=== PATIENT | male | born 1940 | race Caucasian/White ===

== ENCOUNTER 2016-09-27 10:28 | Emergency (ER) | payer MEDICARE, OTHER ==
[~2016-09-27] VITALS: Ht 182.9 cm; Wt 94.5 kg
[~2016-09-27 10:28] MED LIST: ASPI-351 PO; FISH PO; LIP40 PO; LISI10TA9 PO; LOPRESSOR25 MG PO; MVI PO; NIAC1CAP PO; NITR0.4T SL
[2016-09-27 10:50] VITALS: BP 115/59; PULSE 64; RESP 12; O2SAT 96
[2016-09-27 11:10] LABS: INR 1.24 ratio
[2016-09-27 11:29] LABS: Magnesium 1.8 mg/dL (1.6-2.6)
--- NOTE | 2016-09-27 11:30 | ED.REPORT ---
HPI-Chest Pain 40 and Over Date of Service Sep 27, 2016 ED Provider: Teresita Avila MD A 76 year old male with a history of MIx3 and diabetes presents to the ED via EMS complaining of epigastric chest pain described as pressure under breast bones. Pain onset within minutes after he took morning medications, pain rated as 7-8/10. He became diaphoretic and nauseated. He called EMS, having concern for SD because of his Hx of SD. Per EMS, pain was improving en route after he was sitting up. Pain is 3/10 now. Patient reports that Nitro in tongue did not do anything, and he did not take Aspirin, not regularly taking Aspirin at home. Nursing Notes Stated Complaint: EPIGASTRIC PAIN Chief Complaint: Chest Pain Nursing Notes Reviewed: Yes Allergies: Coded Allergies: morphine (Verified Allergy, Severe, 04/04/09) Scheduled Aspirin-Expunged Drug, Do Not Renew! (Aspirin-Expunged Drug, Do Not Renew!) 325 Mg Tablet 325 MG PO PM Atorvastatin-Expunged Drug, Do Not Renew! (Atorvastatin-Expunged Drug, Do Not Renew!) 40 Mg Tablet 60 MG PO HS Fish Oil-Expunged Drug, Do Not Renew! (Fish Oil-Expunged Drug, Do Not Renew!) Cap 1 CAP.EC PO AM Lisinopril-Expunged Drug, Do Not Renew! (Lisinopril-Expunged Drug, Do Not Renew! ) 10 Mg Tablet 10 MG PO PM Metoprolol Tart-Expunged Drug, Do Not Renew! (Metoprolol Tart-Expunged Drug, Do Not Renew!) 25 Mg Tab 25 MG PO AM & PM Niacin/Inositol Niacinate-Expunged Drug, Do N (Niacin-Expunged Drug, Do Not Renew!) 1 Cap Capsule 1 CAP PO AM & PM Nitroglycerin-Expunged Drug, Do Not Renew! (Nitroglycerin SL-Expunged Drug, Do Not Renew!) 0.4 Mg Tab.subl 0.4 MG SL PRN Therapeutic Multivit/Minerals-Expunged Drug, (Therapeutic Multivit/Minerals- Expunged Drug,) 1 Ea Tab 1 TAB PO AM General Time Seen by MD: 10:53 Chief Complaint Chest pain Hx Obtained From: Patient, EMS Arrived By: Ambulance Sudden in Onset?: Yes Onset Occurred: 1 - 4 hours ago Symptom Duration: Since onset Location: : Epigastric Severity: Current: Pain level 3 out of 10 Severity: Maximum: Pain level 8 out of 10 Recent Healthcare: No recent doctor visit Similar Sx Previous: No Past Medical History Past Medical History Notes: All doctors are at [facility] Past Medical History MIx2 Parkinson's disease chronic lymphocytic leukemia neuropathy Reports: Diabetes mellitus, Hypertension Past Surgical History 4 way bypass, 2 stents Reports: Appendectomy Ambulatory Status Independent Review of Systems Constitutional: Denies: Chills, Fever Cardiovascular: Reports: Chest pain GI: Reports: Nausea Skin: Reports Diaphoresis Complete sys rev & neg: except as marked. Physical Exam Initial Vital Signs Vital Signs (First) Date Time Temp Pulse Resp B/P Pulse Ox O2 Delivery O2 Flow Rate FiO2 09/27/16 10:50 36.8 64 12 115/59 96 Room Air Initial VS: Reviewed General/Constitutional: Awake, Alert Respiratory / Chest: Atraumatic, Breath sounds NL, Breath sounds = bilat, No respiratory distress, No rales, No rhonchi, No wheezing Cardiovascular: Heart rate NL, Regular rhythm, Heart sounds NL, No gallop, No murmurs, No rubs Abdomen: No guarding, No rebound, BS normoactive Lower Extremity / Pelvis / MS: Atraumatic, No edema Skin: Atraumatic, Color NL, Warm, Dry Neurologic: Oriented X3 (non focal exam), Speech NL Psychiatric: Affect NL, Mood NL Head / Eyes: Atraumatic, Normocephalic, PERRL, EOMI ENT: Atraumatic, Mucous membranes moist Interpretation & Diagnostics Interpretation & Diagnostics: CLL: WBC has been in this range for the last year Lab Results Interpretation Result Diagram: 09/27/16 1045 09/27/16 1045 Test 09/27/16 10:45 09/27/16 13:20 White Blood Count 80.5th/mm3 (3.8-10.1) Red Blood Count 4.91mil/mm3 (4.40-5.80) Hemoglobin 14.6g/dL (13.8-17.2) Hematocrit 45.5% (41.0-50.0) Mean Corpuscular Volume 92.7fL (81-100) Mean Corpuscular Hemoglobin 29.7pg (27.0-35.0) Mean Corpuscular Hemoglobin Concent 32.1% (32.0-37.0) Red Cell Distribution Width 16.0% (12.3-15.4) Platelet Count 169bil/L (150-400) Neutrophils (%) (Auto) 7% (40-74) Lymphocytes (%) (Auto) 89% (14-46) Monocytes (%) (Auto) 2% (4-12) Eosinophils (%) (Auto) 1% (0-5) Basophils (%) (Auto) 1% (0-3) Hematology Comments Prothrombin Time 13.3sec (8.1-12.5) Prothromb Time International Ratio 1.24ratio Sodium Level 140mEq/L (134-144) Potassium Level 5.3mEq/L (3.5-5.2) Chloride Level 104mEq/L (97-108) Carbon Dioxide Level 24mmol/L (18-29) Blood Urea Nitrogen 17mg/dL (8-27) Creatinine 0.73mg/dL (0.76-1.27) Estimat Glomerular Filtration Rate 111mL/min (>59) Glucose Level 133mg/dL (60-99) Calcium Level 9.3mg/dL (8.5-10.1) Magnesium Level 1.8mg/dL (1.6-2.6) Total Bilirubin 1.1mg/dL (0.0-1.2) Aspartate Amino Transf (AST/SGOT) 42U/L (0-50) Alanine Aminotransferase (ALT/SGPT) 6U/L (0-44) Alkaline Phosphatase 76U/L (25-160) Total Protein 6.4g/dL (6.4-8.4) Albumin 4.1g/dL (3.4-5.0) Troponin T < 0.010ug/L (0.0-0.011) ECG Interpretation ECG Interpretation: Rate is 51. Sinus arrhythmia. Right bundle branch block. No acute ischemia. Time: 11:22 Interpreted by: ED physician X-Ray Chest Interpretation Chest Xray Interpretation: IMPRESSION: No acute cardiopulmonary disease. Dictated by: Freddy Blood M.D. on 09/27/2016 at 11:38 Approved by: Freddy Blood M.D. on 09/27/2016 at 11:38 Interpretation / Wet Read by: Interpret - Radiologist Re-Eval/Medical Decision Med Decision/Clinical Course 76-year-old gentleman with known coronary artery disease, presents with substernal/mid epigastric chest pain shortly after swallowing his morning pills. He does describe it as different from the pain and pressure that he experienced prior to his cardiac events. 911 was called, initial dose of nitroglycerin did not have any effect on his pain. Once in the emergency room 2 additional doses of nitroglycerin were given and did significantly improve overall chest pain. Within about an hour of the nitroglycerin given chest pain was returning. This resolved nicely with a GI cocktail and has remained resolved at this point. Labs are very reassuring including an initial troponin and a repeat troponin at 2 hours. EKG is unchanged and shows no acute ischemia. Onset of pain so closely related to taking a handful of medications, I suspect that there is a small bit of irritation from a pill stuck to the esophageal lining. At this point I do not think that there is a cardiac component to this. My concerns with cardiac etiology and then suspicion for esophageal spasm secondary to a pill being caught are shared with him. All questions are answered. patient feels safe with going home. Requesting copies of notes be sent to [facility]. We will provide him with copies of notes labs and EKGs to actually transport to [facility] specifically. Source of Hx: Old records, EMS Time of Eval: 12:32 Patient Status: Condition improved Re-Evaluation/Progress Note: Rechecked patient who reports that there pain has decreased after having 2 Nitro in ED . He now rates pain as 0-1/10, but reports .episodes of chest pressure and diaphoresis for 5-10 minutes. Her reports that his head "feels like a balloon." He confirms that 1 spray of nitro did not help en route to ED.  Counseled Regarding: Diagnosis, Lab results, Need for follow-up, When/why to return to ED Discharge & Departure Primary Impression: Esophageal spasm Additional Impressions: Non-cardiac chest pain CLL (chronic lymphocytic leukemia) Ruled Out: STEMI (ST elevation myocardial infarction), Acute coronary syndrome Disposition: Home Additional Instructions: I think that your right and your chest pain is caused from a pill getting stuck in your lower esophagus. We did a complete workup to look for cardiac etiologies of your pain and we found nothing of concern. At this point I do believe it is safe for you to go home. I do encourage you to follow up with your physicians at [facility]. I have given you a copy of your ER notes, EKGs and labs to share with your doctors. Thank you for letting me take care of you today. Referrals: JACOB Kay Attestation Portions of this note were transcribed by Dominic Mclean. I, Dr. Avila personally performed the history, physical exam and medical decision-making; I reviewed and confirmed the accuracy of the information in the transcribed note. Signed by: Rahul Ayers, 09/27/2016, 1523. copies to: Teresita Winter MD Sep 27, 2016 11:30 Dominic Mclean Sep 27, 2016 11:37 copies to: Teresita Winter MD Sep 27, 2016 11:30 Domiinc Mclean Sep 27, 2016 11:37 Teresita Avila MD Sep 27, 2016 11:30 Dominic Mclean Sep 27, 2016 11:37
[2016-09-27 11:32] VITALS: BP 111/44; PULSE 63; RESP 15; O2SAT 95
[2016-09-27 11:34] LABS: TROPONIN T < 0.010 ug/L (0.0-0.011)
[2016-09-27 11:35] LABS: BASOPHILS % (AUTO) 1 % (0-3); EOSINOPHILS % (AUTO) 1 % (0-5); MONOCYTES % (AUTO) 2 % (4-12); Mean Corpuscular Hemoglobin 29.7 pg (27.0-35.0); Mean Corpuscular Volume 92.7 fL (81-100); NEUTROPHILS % (AUTO) 7 % (40-74); Platelet Count 169 bil/L (150-400)
--- NOTE | 2016-09-27 11:40 | DRSVH ---
PROCEDURE: X-RAY CHEST ONE VIEW, PORTABLE ([id number]) INDICATIONS: 76 year-old male with chest pain. TECHNIQUE: One view of the chest was acquired. COMPARISON: [facility], , CHEST 1VW (PORTABLE), 09/22/2008, 8:40. FINDINGS: Surgical changes and devices: Patient is status post coronary artery bypass grafting. Lungs and pleura: No pleural effusions or pneumothorax. Lungs are clear. Mediastinum: Mediastinal contours appear normal. Heart size is normal. Bones and chest wall: No suspicious bony lesions. Overlying soft tissues appear unremarkable. IMPRESSION: No acute cardiopulmonary disease. Dictated by: Freddy Blood M.D. on 09/27/2016 at 11:38 Approved by: Freddy Blood M.D. on 09/27/2016 at 11:38
[2016-09-27 11:44] VITALS: BP 92/50; PULSE 67; RESP 16; O2SAT 96
[2016-09-27] MEDS: LidocaineVisc 2%:Antacid 1:1 10 mL Syringe PO SCH ×2 (12:54→13:16)
[2016-09-27 13:57] VITALS: BP 124/57; PULSE 81; RESP 15; O2SAT 98
[2016-09-27 15:40] VITALS: BP 126/63; PULSE 59; RESP 18; O2SAT 99
== END 2016-09-27 15:49 | disposition home or self-care (01) ==
LOC: SED 10:28 → EDBD 10:28 → EDUNIT# 10:28 → SED 15:49
DX: K22.4 Dyskinesia of esophagus (principal); R07.89 Other chest pain; C91.10 Chronic lymphocytic leukemia of B-cell type not having achieved remission; I25.2 Old myocardial infarction; G20 Parkinson's disease; E11.9 Type 2 diabetes mellitus without complications; I10 Essential (primary) hypertension; Z95.5 Presence of coronary angioplasty implant and graft; Z88.5 Allergy status to narcotic agent; Z79.82 Long term (current) use of aspirin

== ENCOUNTER 2016-10-01 02:27 | Observation (INO) | payer MEDICARE, OTHER ==
[2016-10-01] VITALS (9 sets, daily range): BP systolic 98–125; BP diastolic 50–71; PULSE 52–62; RESP 14–20; O2SAT 95–98
[~2016-10-01] VITALS: Ht 185.4 cm; Wt 95.4 kg
[2016-10-01 02:46] LABS: EOSINOPHILS % (AUTO) 0 % (0-5); Mean Corpuscular Hemoglobin 29.2 pg (27.0-35.0); Mean Corpuscular Volume 90.9 fL (81-100); Platelet Count 169 bil/L (150-400)
--- NOTE | 2016-10-01 02:48 | ED.REPORT ---
HPI-Chest Pain 40 and Over Date of Service Oct 01, 2016 ED Provider: Dr. Vallejo Pt is a 76 year old male with a hx of MIx3, Parkinson's disease, chronic lymphocytic leukemia, neuropathy, DM, HTN presenting to the ED via EMS complaining of 8/10 chest pain lasting about 45 minutes onset just prior to arrival after light exertion. Associated symptoms include diaphoresis, SOB, nausea. He reports that this felt much different than his other heart attacks, though each chart attack was different from the prior. Medics gave 2 nitro and 324 ASA. The chest pain is currently at a 0/10. Nursing Notes Stated Complaint: CHEST PAIN Chief Complaint: Chest Pain Nursing Notes Reviewed: Yes Allergies: Coded Allergies: morphine (Verified Allergy, Severe, 04/04/09) Scheduled Aspirin-Expunged Drug, Do Not Renew! (Aspirin-Expunged Drug, Do Not Renew!) 325 Mg Tablet 325 MG PO PM Atorvastatin-Expunged Drug, Do Not Renew! (Atorvastatin-Expunged Drug, Do Not Renew!) 40 Mg Tablet 60 MG PO HS Fish Oil-Expunged Drug, Do Not Renew! (Fish Oil-Expunged Drug, Do Not Renew!) Cap 1 CAP.EC PO AM Lisinopril-Expunged Drug, Do Not Renew! (Lisinopril-Expunged Drug, Do Not Renew! ) 10 Mg Tablet 10 MG PO PM Metoprolol Tart-Expunged Drug, Do Not Renew! (Metoprolol Tart-Expunged Drug, Do Not Renew!) 25 Mg Tab 25 MG PO AM & PM Niacin/Inositol Niacinate-Expunged Drug, Do N (Niacin-Expunged Drug, Do Not Renew!) 1 Cap Capsule 1 CAP PO AM & PM Nitroglycerin-Expunged Drug, Do Not Renew! (Nitroglycerin SL-Expunged Drug, Do Not Renew!) 0.4 Mg Tab.subl 0.4 MG SL PRN Therapeutic Multivit/Minerals-Expunged Drug, (Therapeutic Multivit/Minerals- Expunged Drug,) 1 Ea Tab 1 TAB PO AM General Time Seen by MD: 02:47 Chief Complaint Chest pain Hx Obtained From: Patient, EMS Arrived By: Ambulance Sudden in Onset?: Yes Onset Occurred: Just prior to arrival Context of Onset: Light exertion Symptom Duration: Since onset Quality: Painful Severity: Current: Pain level 0 out of 10 Severity: Maximum: Pain level 8 out of 10 Recent Healthcare: No recent doctor visit, No recent hospitalization Similar Sx Previous: No Past Medical History Past Medical History Notes: All doctors are at [facility] Past Medical History MIx2 Parkinson's disease chronic lymphocytic leukemia neuropathy Reports: Diabetes mellitus, Hypertension Past Surgical History 4 way bypass, 2 stents Reports: Appendectomy Smoking History Never Smoker Ambulatory Status Independent Review of Systems Respiratory: Reports: Shortness of breath Cardiovascular: Reports: Chest pain GI: Reports: Nausea, Denies: Vomiting Skin: Reports Diaphoresis Complete sys rev & neg: except as marked. Physical Exam Initial Vital Signs Vital Signs (First) Date Time Temp Pulse Resp B/P Pulse Ox O2 Delivery O2 Flow Rate FiO2 10/01/16 02:31 36.8 61 14 120/54 95 Room Air Initial VS: Reviewed Head / Eyes: Atraumatic, Normocephalic, PERRL ENT: Mucous membranes moist, Conjunctiva normal, No scleral icterus Neck: Supple, Non-tender, Full range of motion Extremities: Vascular intact, Neuro intact, No swelling, No tenderness Skin: Warm, Dry, No cyanosis Neurologic: Alert, Oriented, Nonfocal Psychiatric: Mood/affect normal, Behavior normal, Normal thought content General/Constitutional: Awake, Alert, No acute distress, Well appearing, Well developed, Well hydrated Respiratory / Chest: Breath sounds NL, Breath sounds = bilat, No respiratory distress, No rales, No rhonchi, No wheezing, No stridor, No chest tenderness Cardiovascular: Heart rate NL, Regular rhythm, Heart sounds NL, No murmurs, Peripheral circulation NL, Pulses = bilaterally, No gross BP differential Abdomen: Atraumatic, Soft, Non-tender Interpretation & Diagnostics Lab Results Interpretation Result Diagram: 10/01/16 0230 10/01/16 0230 Test 10/01/16 02:30 10/01/16 04:53 White Blood Count 99.4th/mm3 (3.8-10.1) Red Blood Count 4.86mil/mm3 (4.40-5.80) Hemoglobin 14.2g/dL (13.8-17.2) Hematocrit 44.2% (41.0-50.0) Mean Corpuscular Volume 90.9fL (81-100) Mean Corpuscular Hemoglobin 29.2pg (27.0-35.0) Mean Corpuscular Hemoglobin Concent 32.1% (32.0-37.0) Red Cell Distribution Width 15.7% (12.3-15.4) Platelet Count 169bil/L (150-400) Neutrophils (%) (Auto) 15% (40-74) Lymphocytes (%) (Auto) 85% (14-46) Monocytes (%) (Auto) 0% (4-12) Eosinophils (%) (Auto) 0% (0-5) Basophils (%) (Auto) 0% (0-3) Prothrombin Time 12.2sec (8.1-12.5) Prothromb Time International Ratio 1.14ratio Activated Partial Thromboplast Time 33.0sec (22.8-33.0) Sodium Level 140mEq/L (134-144) Potassium Level 5.0mEq/L (3.5-5.2) Chloride Level 101mEq/L (97-108) Carbon Dioxide Level 22mmol/L (18-29) Blood Urea Nitrogen 23mg/dL (8-27) Creatinine 0.82mg/dL (0.76-1.27) Estimat Glomerular Filtration Rate 97mL/min (>59) Glucose Level 294mg/dL (60-99) Calcium Level 9.2mg/dL (8.5-10.1) Magnesium Level 2.1mg/dL (1.6-2.6) Total Bilirubin 1.2mg/dL (0.0-1.2) Aspartate Amino Transf (AST/SGOT) 20U/L (0-50) Alanine Aminotransferase (ALT/SGPT) 7U/L (0-44) Alkaline Phosphatase 88U/L (25-160) Pro-B-Type Natriuretic Peptide 638pg/mL (0-486) Total Protein 6.8g/dL (6.4-8.4) Albumin 3.9g/dL (3.4-5.0) Total Creatine Kinase 100U/L (21-232) Creatine Kinase MB 2.5ng/mL (0.0-10.4) Creatine Kinase MB % % (0.0-5.0) Troponin T 0.010ug/L (0.0-0.011) Thyroid Stimulating Hormone (TSH) 1.370uIU/mL (0.450-4.500) ECG Interpretation ECG Interpretation: RBBB. Time: 02:41 Normal ECG Interpretation: Normal rate (58), Normal sinus rhythm X-Ray Chest Interpretation Chest Xray Interpretation: Increased markings with a bit of CHF Interpretation / Wet Read by: Juany read ED physician Re-Eval/Medical Decision Med Decision/Clinical Course 76-year-old with CLL, known coronary disease status post multiple procedures, presents with cardiac sounding chest pain radiating to his left arm. This is now resolved after forty-five minute spell. His initial troponin is negative. EKG is right bundle branch block and cannot exclude ischemia. Admitted for completion of rule out protocol and some effort at dynamic testing, probably a MIBI. Transported down stable condition. Time of Eval: 04:32 Patient Status: Condition improved Re-Evaluation/Progress Note: Discussed plan for admission. Pt understands and agrees. Consultation : Referral / Consult Name: Carl Thomas MD Consulted With: Hospitalist Call Returned at: 04:31 Inbound Sales Representative: Will see patient, Agrees with plan, Accepts admit Counseled Regarding: Diagnosis, Lab results, Need for follow-up, When/why to return to ED Discharge & Departure Primary Impression: CAD (coronary artery disease) Coronary Disease-Associated Artery/Lesion type: unspecified vessel or lesion type [place] vs. transplanted heart: [place] heart Associated angina: angina presence unspecified Qualified Code: I25.10 - Atherosclerotic heart disease of [place] coronary artery without angina pectoris Additional Impressions: Chest pain Chest pain type: unspecified Qualified Code: R07.9 - Chest pain, unspecified CLL (chronic lymphocytic leukemia) Disposition: ADMITTED TO HOSPITAL Discharge Condition All VS Reviewed: Yes Condition: Improved Referrals: KAYA PETERSEN (PCP) Rahul Attestation Portions of this note were transcribed by Laxmi Hopper. I, Dr. Vallejo personally performed the history, physical exam and medical decision-making; I reviewed and confirmed the accuracy of the information in the transcribed note. Signed by: Rahul Henry, 10/01/2016 at 0431. copies to: KAYA PETERSEN Christopher W MD Oct 01, 2016 02:48 LAXMI HOPPER Oct 01, 2016 02:56
[2016-10-01] MEDS ORDERED: Nitroglycerin 2% 1 Gm Ointment TOPICAL ONE (03:00)
[2016-10-01 03:09] LABS: TROPONIN T 0.01 ug/L (0.0-0.011)
[2016-10-01 03:11] LABS: BASOPHILS % (AUTO) 0 % (0-3); MONOCYTES % (AUTO) 0 % (4-12); NEUTROPHILS % (AUTO) 15 % (40-74)
[2016-10-01 03:12] LABS: INR 1.14 ratio
[2016-10-01 03:19] LABS: Magnesium 2.1 mg/dL (1.6-2.6)
[2016-10-01] MEDS ORDERED: 0.9% Sodium Chloride 1,000 ML IV SCH (04:31)
[2016-10-01] MEDS ORDERED: Senna-Docusate 8.6-50 mg Tablet PO PRN (04:35)
[2016-10-01] MEDS ORDERED: Polyethylene Glycol (PEG) 17 Gm Powder PO PRN (04:35)
[2016-10-01] MEDS ORDERED: Ondansetron 2 mg/mL 2 mL Inj IVPUSH PRN (04:35)
[2016-10-01] MEDS ORDERED: Alum-Mag Hydrox-Simeth 30 mL Suspension PO PRN (04:35)
[2016-10-01] MEDS ORDERED: Atropine 1 mg/10 mL (Code) Syringe IVPUSH PRN (04:35)
[2016-10-01 05:56] LABS: Creatine Kinase 100 U/L (21-232)
--- NOTE | 2016-10-01 07:21 | NUR ---
Admit To floor from ED at 0525, accompanied by . Alert and oriented. Able to pivot transfer himself from [place] to bed. Tele sinus edvin in 50's. Denies any chest pain. States two falls on Friday with several bruises and abrasions that are healing. Right 4th finger skin tear redressed with bacitracin, gauze, and tape. Ice to left knee, at site of recent cortisone injection, and to left hand bruise. states she will bring in advance directive. Pt is NPO in anticipation of stress test. Nitropaste removed in anticipation of stress test. Plan of care explained to patient and . No further questions at this time.
[2016-10-01] MEDS: Sodium Chloride LOK Flush 10 mL Syringe IVFLUSH SCH ×3 (07:46→23:52)
[2016-10-01] MEDS ORDERED: CARB1TAB14 PO (07:59)
[2016-10-01] MEDS ORDERED: ROPI0.252 PO (07:59)
[2016-10-01] MEDS ORDERED: METO25TA99 PO (07:59)
[2016-10-01] MEDS ORDERED: GABA-502 PO ×2 (07:59)
[2016-10-01] MEDS ORDERED: LISI10TA PO (07:59)
[2016-10-01] MEDS ORDERED: RIVA20TA PO (07:59)
[2016-10-01] MEDS ORDERED: ASPI-973 PO (07:59)
[2016-10-01] MEDS ORDERED: ATOR80TA PO (07:59)
[2016-10-01] MEDS ORDERED: METF500T4 PO (07:59)
[2016-10-01] MEDS ORDERED: Heparin 5,000 Unit/mL Inj SUBQ SCH (08:30)
--- NOTE | 2016-10-01 09:25 | DRSVH ---
PROCEDURE: X-RAY CHEST ONE VIEW, PORTABLE ([id number]) INDICATIONS: chest pressure TECHNIQUE: One view of the chest was acquired. COMPARISON: [facility], CR, XR CHEST 1VW (PORTABLE), 09/27/2016, 11:15. FINDINGS: Surgical changes and devices: Post median sternotomy. Lungs and pleura: Pulmonary vasculatures prominent than diffuse, widespread bilateral interstitial op acities are present suspicious for edema. Mediastinum: Mediastinal contours appear normal. Heart size is normal. Bones and chest wall: No suspicious bony lesions. Overlying soft tissues appear unremarkable. IMPRESSION: Mild cephalization of lung vessels and pulmonary edema suggesting mild CHF. Correlate cl inically. Dictated by: Adrian Samano RRA Interpreted: Carla Bynum MD on 10/01/2016 at 9:24 Transcribed by: ZAINAB on 10/01/2016 at 9:25 Approved by: Carla Bynum MD, PhD on 10/01/2016 at 11:27
--- NOTE | 2016-10-01 11:08 | NUR ---
Case Management: [place] and Medicare Part D pamphlet delivered and explained to pt. and spouse. Signed original placed in chart. Copy left at bedside. Winnie Aguilar RN
[2016-10-01 11:28] LABS: Creatine Kinase 104 U/L (21-232)
[2016-10-01 11:29] LABS: TROPONIN T < 0.010 ug/L (0.0-0.011)
--- NOTE | 2016-10-01 13:03 | PCM.HPMED ---
Subjective Date of Service Oct 01, 2016 Primary Provider: Admitting Physician: Carl Thomas MD Primary Care Physician: [facility] Attending Physician: Carl Thomas MD Admit Status: From the Emergency Department Chief Complaint: Chest pain History of Present Illness: This is a very pleasant 76-year-old male with a history of coronary artery disease, myocardial infarctions 3, status post bypass surgery in 1981 and 1996 , and stent placement in 2001, hypertension, hyperlipidemia, diabetes, atrial fibrillation anticoagulated on Xarelto, chronic lymphocytic leukemia, neuropathy and Parkinson's disease who came in to [facility] Emergency Department via EMS complaining of chest pain that started around 2:00 in the morning. Patient states he woke up to go to the bathroom and when he went back to bed at 10 minutes later he developed pressure-like left-sided chest pain radiating down his left arm into his first and second digits. He also reports diaphoresis at that time. He reports that this pain was much different from the previous one when he had several heart attacks in the past. He reports relief of symptoms after he received 2 nitroglycerin tablets and aspirin. He reports chest pain of 0 out of 10 at this time. Patient also reports a recent fall due to his chronic neuropathy and foot drop as well as recent knee injury. Otherwise patient denies shortness of breath, orthopnea, paroxysmal nocturnal dyspnea, nausea, vomiting, abdominal pain, diarrhea, constipation, chills or fevers. He lives independently with his , he does not smoke, he drinks a little alcohol occasionally. He is followed by Dr. Nba Maria, floor care technician, at [facility]. In the Emergency Department his vital signs were: temperature 36.8, pulse 61, respiration 14, blood pressure 120/54, pulse oximetry 95% on room air. White blood count 99.4, hemoglobin 14.2, hematocrit 44.2, platelets 169. Sodium 140, potassium 5.0, chloride 101, carbon dioxide 22, BUN 23, creatinine 0.82, blood glucose 294. Troponin 0.0102, pro BNP 638, CK-MB 2.5, total creatinine kinase 100, TSH 1.370. Review of Systems: A comprehensive review of systems has been conducted with the patient and was found to be negative except what is mentioned in the history of present illness. Allergies Coded Allergies: morphine (Verified Allergy, Severe, 04/04/09) Home Medications Aspirin 81 mg daily Lipitor 80 mg daily Carbidopa/levodopa 25/100 mg 3 times a day Gabapentin 300 mg in the morning and 900 mg in the evening Lisinopril 10 mg daily Metformin 500 mg twice a day Metoprolol succinate ER 25 mg daily Nitroglycerin 0.4 mg sublingual when necessary Xarelto 20 mg daily Ropinirole 0.25 mg 3 times a day Multivitamin 1 tab daily PMH Myocardial infarction 3 Parkinson's Chronic Lymphocytic Leukemia Hypertension Hyperlipidemia Diabetes Atrial fibrillation Surgical History 4 way bypass, 2 stents Appendectomy Family History Noncontributory Social History Hx Alcohol Use: Yes (daily glass of wine) Hx Substance Use: No Hx Tobacco Use: No Smoking Status: Never Smoker Living Arrangement: with Family Exam Vital Signs Vital Sign - Last Date Time Temp Pulse Resp B/P Pulse Ox O2 Delivery O2 Flow Rate FiO2 10/01/16 11:42 36.7 62 20 120/71 98 Room Air Exam General: Well-nourished, well-developed male in no acute distress, cooperative and pleasant HEENT: Atraumatic, EOMI, sclera anicteric, mucous membranes moist Cardiac: Regular rate and rhythm with rate approximately 60 at time of examination; no murmurs appreciated Respiratory: Adequate airflow all christensen, clear to auscultation bilaterally Abdomen: Soft, nontender, nondistended, normoactive bowel sounds Extremities: No edema present Skin: Warm and dry, somewhat erythematous on the face and abdomen Pulses: Radial equal and bilateral; good capillary refill at less than 2 seconds Neuro: Cranial nerves II through XII grossly intact Psych: Appropriate mood, affect, and responses to questioning; good insight and judgment Lab and Diagnostics Result Diagram: 10/01/16 0230 10/01/16 0230 X-Rays, CTs and MRIs X-RAY CHEST ONE VIEW, PORTABLE IMPRESSION: Mild cephalization of lung vessels and pulmonary edema suggesting mild CHF. Correlate clinically. Dictated by: Adrian Samano RRA Interpreted: Carla Bynum MD on 10/01/2016 at 9:24 Approved by: Carla Bynum MD, PhD on 10/01/2016 at 11:27 12-lead ECG Normal sinus rhythm, rate 58, right bundle-branch block Assessment & Plan Faraz Parada is a very pleasant gentleman with history of coronary artery disease, myocardial infarctions 3, status post bypass surgery in 1981 and 1996 , and stent placement in 2001, hypertension, hyperlipidemia, diabetes, atrial fibrillation anticoagulated on Xarelto, chronic lymphocytic leukemia, neuropathy and Parkinson's disease who came in to [facility] with chest pain and has been admitted for acute coronary syndrome rule out. Chest pain, present at admission. Improved -History of bypass surgery in 1981 and in 1996, and stent placement in 2001 -Risk factors include sex, age, coronary artery disease, hypertension, hyperlipidemia, diabetes -Chest pain resolved after 2 tablets of nitroglycerin -Troponin negative 2 -No acute ischemic changes on EKG -Lexiscan stress test pending -Continue to monitor on telemetry -Continue home lisinopril, metoprolol, aspirin, Lipitor -Patient's floor care technician from [facility], Dr. Maria has been contacted by phone and informed about patient admission to [facility] Paroxysmal atrial fibrillation, present on admission. Stable -Continue metoprolol and Xarelto Hypertension. Presumed stable -Continue home medication lisinopril and metoprolol Hyperlipidemia. Presumed stable -Continue Lipitor Parkinson's disease. Presumed stable -Continue carbidopa/levodopa and ropinirole Diabetes mellitus, type II. Presumed stable -Hold metformin -Nutritional and medium dose correctional insulin Neuropathy. Presumed stable. -Continue gabapentin Disposition: Patient has been admitted on inpatient status with the expected length of stay more than 2 midnights. Pain Evaluation: Adequate Pain Control VTE Prophylaxis: Sub-Q Heparin (Unfractionated) Resuscitation Status: CPR: Attempt Resuscitation Attending Statement The patient was seen and examined together with Dr. Yepez on 10/01/16 and I agree with the history, exam and plan as outlined in the note above. Neetu Yepez DO Oct 01, 2016 13:03 Linda Reyna DO October 10, 2016 18:53
[2016-10-01] MEDS ORDERED: Glucose 40% Oral Gel 15 Gm Tube PO PRN (13:55)
[2016-10-01] MEDS ORDERED: METO25TA3 PO (16:33)
[2016-10-01] MEDS ORDERED: METR60GE4 TOPICAL (16:33)
[2016-10-01] MEDS ORDERED: NITR0.4T SL (16:33)
--- NOTE | 2016-10-01 16:34 | NUR ---
Social Work- Initial Assessment Data: See Initial Assessment. Pt is a 76 year old male admitted 10/01/16 for chest pain CAD. Pt's insurance is [employer]. Pt's PCP is located at [facility]. EDUARDO met with pt's and daughter (Naa Parada, , and daughter Mary) at bedside regarding discharge plan, SW role explained. Pt resides in [place] with his where he receives minimal assistance with ADLs. Pt has Parkinson's and wears leg braces when ambulating. Pt uses a cane or walker at baseline, uses mccann to cruise through home and support himself. Pt has been receiving outpt PT 2x per week to continue to strengthen core. Pt has no HH or SNF history. Pt has no LTC or VA benefits. Pt experiences knee pain at baseline, receives cortisone injections for this. Pt has bath bench currently, interested in having outpt OT consultation to assist with further adaptation in the home. Pt's DPOA paperwork is at home, SW encouraged to bring this paperwork into the hospital. Pt to discharge home with to transport via POV. No anticipated discharge needs. SW will continue to follow. Assessment: Pt who is at baseline mobility and uses leg braces, cane, and walker at base. Plan: Pt to discharge home with to transport via POV. No anticipated discharge needs. SW will continue to follow. EDIS Guzman Addendum: 10/01/16 at 1642 by LUANNE GARCIA SS Amended: Links added.
[2016-10-01] MEDS: Insulin LISPRO 300 Unit/3 mL Inj SUBQ SCH ×2 (18:21→21:21)
--- NOTE | 2016-10-01 18:41 | NUR ---
Shift summary Pt went for stress test this afternoon. Denies chest pain. Up to bedside commode as a 1PA. Blood sugar elevated (261) at dinner and sliding scale insulin given. Denies issues voiding, using the urinal and had a BM today. Vital signs stable.
--- NOTE | 2016-10-01 18:52 | DRSVH ---
PROCEDURE: 1 DAY PHARMACOLOGICAL STRESS TEST INDICATIONS: CHEST PAIN COMPARISON: None. Radiopharmaceutical: Stress dose 26.2 mCi of technetium 99 tetrofosmin Rest dose 8.69 mCi of technetium 99 tetrofosmin Patient presentation: Patient is 76-year-old man with coronary disease status post CABG in 1997, sten ting, diabetes, hypertension and right bundle branch block. FINDINGS: Pharmacologic stress test following informed consent Lexiscan was infused per protocol. Patient had a typical chest pain radiating into left thumb that resolved after Aminophyllin. There were no ST segme nt changes. Rare PVCs. Raw data : Normal myocardial tracer uptake. Lung heart ratio is normal. Myocardial perfusion: There is a large severe fixed distal anterior perfusion defect. No ischemia Quantitative gated SPECT: Normal wall motion and left ventricular systolic function with the exceptio n of distal anterior akinesis. Ejection fraction is 76% at peak stress and 69% at rest. IMPRESSION: Large severe fixed distal anterior perfusion defect consistent with completed infarct. No alex-infarc t ischemia. Distal anterior akinesis; otherwise normal motion and left ventricular systolic function. Compared to prior stress test performed September 23, 2008 distal anterior completed infarct is unchanged . Subtle alex-infarct ischemia is no longer seen. Dictated by: Rita Burgos M.D. on 10/01/2016 at 18:40 Approved by: Rita Burgos M.D. on 10/01/2016 at 18:51
[2016-10-02 03:39] VITALS: BP 120/67; PULSE 48; RESP 19; O2SAT 96
[2016-10-02 04:37] LABS: BASOPHILS % (AUTO) 0.3 % (0-3); EOSINOPHILS % (AUTO) 0.1 % (0-5); MONOCYTES % (AUTO) 1.9 % (4-12); Mean Corpuscular Hemoglobin 29.1 pg (27.0-35.0); Mean Corpuscular Volume 91.1 fL (81-100); NEUTROPHILS % (AUTO) 13.7 % (40-74); Platelet Count 169 bil/L (150-400)
[2016-10-02] MEDS: Insulin LISPRO 300 Unit/3 mL Inj SUBQ SCH (07:39)
[2016-10-02] MEDS: Sodium Chloride LOK Flush 10 mL Syringe IVFLUSH SCH (07:40)
[2016-10-02 08:00] VITALS: BP 130/77; PULSE 51; RESP 20; O2SAT 96
[2016-10-02 10:32] VITALS: PULSE 57
--- NOTE | 2016-10-02 11:10 | PCM.DIMED ---
Neetu Yepez DO 10/02/16 1110: Discharge Instructions Date of Service Oct 02, 2016 Dates of Hospitalization Oct 01, 2016 at 05:19 Discharge Diagnosis Discharge Diagnosis Chest pain, present at admission. Resolved Paroxysmal atrial fibrillation, present on admission. Stable Hypertension. Presumed stable Hyperlipidemia. Presumed stable Parkinson's disease. Presumed stable Diabetes mellitus, type II. Presumed stable Peripheral neuropathy. Presumed stable. Diet Heart Healthy Activity Limited until seen by PCP Call your provider Fever or Chills, Shortness of breath, Bleeding, Chest pain, Vomitting, Excessive diarrhea, Weakness (unilateral) Patient Instructions Follow-up plan Please follow up with your PCP, Dr. Sorto, and your labor specialist, Dr. Maria , within a week or two after discharge. Jd Burrell MD 10/03/16 0157: Discharge Instructions Attending's Statement The patient was seen and examined together with Dr. Yepez on 10/02/2016 and I agree with the history, exam and plan as outlined in the note above. . Neetu Yepez DO Oct 02, 2016 11:10 Jd Burrell MD Oct 03, 2016 01:57
--- NOTE | 2016-10-02 12:22 | NUR ---
Social Work Note: Discharge Data& Assessment: Per pt is medically ready to discharge. SW met with pt and pt at bedside to confirm discharge plan and assess for any unmet needs. Faraz Parada is a 76 year old male under observation beginning on 10/01/2016 for chest pain. Per pt is medically improved and ready to discharge home. Pt states that he is ambulating close to his baseline has he has a torn tendon in his knee that he is participating in outpt rehab in the community for. Pt plans to continue outpt rehab. Pt transporting POV. Pt and pt deny any other needs. No other discharge needs identified. Plan: Per pt is medically ready to discharge home via POV. Pt and pt deny any other needs. No other discharge needs identified. EDIS Payton
--- NOTE | 2016-10-02 13:24 | NUR ---
D/C note.. Pt has no c/o chest pain or SOB. Has been dangled at the bedside and is flor activity well per his baseline at home. D/C orders received. Pt and had instructions reviewed. Pt prefers to make his own followup appointments with his usual MD's at [facility]. D/c home with and belongings.
--- NOTE | 2016-10-03 19:20 | PCM.DC.MED ---
Discharge Summary Date of Service Oct 03, 2016 Dates of Hospitalization Date of Hospital Admission Oct 01, 2016 at 05:19 Date of Discharge: Oct 02, 2016 Providers: Admitting Physician: Carl Thomas MD Primary Care Physician: Yamel Lee Attending Physician: Carl Thomas MD Diagnosis at Time of Discharge Diagnosis at Time of Discharge Chest pain, present at admission. Resolved Paroxysmal atrial fibrillation, present on admission. Stable Hypertension. Presumed stable Hyperlipidemia. Presumed stable Parkinson's disease. Presumed stable Diabetes mellitus, type II. Presumed stable Peripheral neuropathy. Presumed stable. Procedures XRay, CTs & MRIs X-RAY CHEST ONE VIEW, PORTABLE IMPRESSION: Mild cephalization of lung vessels and pulmonary edema suggesting mild CHF. Correlate clinically. Dictated by: Adrian Samano RRA Interpreted: Carla Bynum MD on 10/01/2016 at 9:24 Approved by: Carla Bynum MD, PhD on 10/01/2016 at 11:27 ECG 12 Lead Normal sinus rhythm, rate 58, right bundle-branch block Other Diagnostics 1 DAY PHARMACOLOGICAL STRESS TEST IMPRESSION: Large severe fixed distal anterior perfusion defect consistent with completed infarct. No alex-infarct ischemia. Distal anterior akinesis; otherwise normal motion and left ventricular systolic function. Compared to prior stress test performed September 23, 2008 distal anterior completed infarct is unchanged. Subtle alex-infarct ischemia is no longer seen. Dictated and approved by: Rita Burgos M.D. on 10/01/2016 at 18:40 Brief History This is a very pleasant 76-year-old male with a history of coronary artery disease, myocardial infarctions 3, status post bypass surgery in 1981 and 1996 , and stent placement in 2001, hypertension, hyperlipidemia, diabetes, atrial fibrillation anticoagulated on Xarelto, chronic lymphocytic leukemia, neuropathy and Parkinson's disease who came in to [facility] Emergency Department via EMS complaining of chest pain that started around 2:00 in the morning. Patient states he woke up to go to the bathroom and when he went back to bed at 10 minutes later he developed pressure-like left-sided chest pain radiating down his left arm into his first and second digits. He also reports diaphoresis at that time. He reports that this pain was much different from the previous one when he had several heart attacks in the past. He reports relief of symptoms after he received 2 nitroglycerin tablets and aspirin. He reports chest pain of 0 out of 10 at this time. Patient also reports a recent fall due to his chronic neuropathy and foot drop as well as recent knee injury. Otherwise patient denies shortness of breath, orthopnea, paroxysmal nocturnal dyspnea, nausea, vomiting, abdominal pain, diarrhea, constipation, chills or fevers. He lives independently with his , he does not smoke, he drinks a little alcohol occasionally. He is followed by Dr. Nba Maria, lehr cutter, at [facility]. In the Emergency Department his vital signs were: temperature 36.8, pulse 61, respiration 14, blood pressure 120/54, pulse oximetry 95% on room air. White blood count 99.4, hemoglobin 14.2, hematocrit 44.2, platelets 169. Sodium 140, potassium 5.0, chloride 101, carbon dioxide 22, BUN 23, creatinine 0.82, blood glucose 294. Troponin 0.0102, pro BNP 638, CK-MB 2.5, total creatinine kinase 100, TSH 1.370. Hospital Course Faraz Parada is a very pleasant gentleman with history of coronary artery disease, myocardial infarctions 3, status post bypass surgery in 1981 and 1996 , and stent placement in 2001, hypertension, hyperlipidemia, diabetes, atrial fibrillation anticoagulated on Xarelto, chronic lymphocytic leukemia, neuropathy and Parkinson's disease who came in to [facility] with chest pain and has been admitted for acute coronary syndrome rule out. Chest pain, present at admission. Resolved -History of bypass surgery in 1981 and in 1996, and stent placement in 2001 -Risk factors include sex, age, coronary artery disease, hypertension, hyperlipidemia, diabetes -Chest pain resolved after 2 tablets of nitroglycerin -Troponin negative 2 -No acute ischemic changes on EKG -Lexiscan stress test revealed no changes compared to previous test done on September 23, 2008 -Continued to monitor on telemetry -Continued home lisinopril, metoprolol, aspirin, Lipitor -Patient's lehr cutter from [facility], Dr. Maria has been contacted by phone and informed about patient admission to [facility] -Patient discharged with instructions for close follow up with primary care provider, Dr. Sorto, and lehr cutter, Dr. Maria Paroxysmal atrial fibrillation, present on admission. Stable -Continued metoprolol and Xarelto Hypertension. Presumed stable -Continued home medication lisinopril and metoprolol Hyperlipidemia. Presumed stable -Continued Lipitor Parkinson's disease. Presumed stable -Continued carbidopa/levodopa and ropinirole Diabetes mellitus, type II. Presumed stable -Hold metformin -Nutritional and medium dose correctional insulin Neuropathy. Presumed stable. -Continued gabapentin Patient has been discharged home in a stable condition. Exam Vital Signs (Last) Date Time Temp Pulse Resp B/P Pulse Ox O2 Delivery O2 Flow Rate FiO2 10/02/16 10:32 57 10/02/16 08:00 36.4 20 130/77 96 Room Air Exam General: Well-nourished, well-developed male in no acute distress, cooperative and pleasant HEENT: Atraumatic, sclera anicteric, mucous membranes moist Cardiac: Regular rate and rhythm; no murmurs appreciated Respiratory: Adequate airflow all christensen, clear to auscultation bilaterally Abdomen: Soft, nontender, nondistended, normoactive bowel sounds Extremities: No edema present Skin: Warm and dry, somewhat erythematous on the face and abdomen Pulses: Radial equal and bilateral; good capillary refill at less than 2 seconds Neuro: Cranial nerves II through XII grossly intact Psych: Appropriate mood, affect, and responses to questioning; good insight and judgment Test 10/01/16 02:30 10/01/16 04:53 10/01/16 05:50 10/01/16 10:33 Blood Smear Pathologist Review Prothrombin Time 12.2sec (8.1-12.5) Prothromb Time International Ratio 1.14ratio Activated Partial Thromboplast Time 33.0sec (22.8-33.0) Magnesium Level 2.1mg/dL (1.6-2.6) Total Bilirubin 1.2mg/dL (0.0-1.2) Aspartate Amino Transf (AST/SGOT) 20U/L (0-50) Alanine Aminotransferase (ALT/SGPT) 7U/L (0-44) Alkaline Phosphatase 88U/L (25-160) Pro-B-Type Natriuretic Peptide 638pg/mL (0-486) Total Protein 6.8g/dL (6.4-8.4) Albumin 3.9g/dL (3.4-5.0) Thyroid Stimulating Hormone (TSH) 1.370uIU/mL (0.450-4.500) Hold Urine Received (Received) Total Creatine Kinase 104U/L (21-232) Creatine Kinase MB 3.1ng/mL (0.0-10.4) Creatine Kinase MB % % (0.0-5.0) Troponin T < 0.010ug/L (0.0-0.011) Test 10/02/16 04:03 White Blood Count 83.1th/mm3 (3.8-10.1) Red Blood Count 4.40mil/mm3 (4.40-5.80) Hemoglobin 12.8g/dL (13.8-17.2) Hematocrit 40.1% (41.0-50.0) Mean Corpuscular Volume 91.1fL (81-100) Mean Corpuscular Hemoglobin 29.1pg (27.0-35.0) Mean Corpuscular Hemoglobin Concent 31.9% (32.0-37.0) Red Cell Distribution Width 15.6% (12.3-15.4) Platelet Count 169bil/L (150-400) Neutrophils (%) (Auto) 13.7% (40-74) Lymphocytes (%) (Auto) 83.6% (14-46) Monocytes (%) (Auto) 1.9% (4-12) Eosinophils (%) (Auto) 0.1% (0-5) Basophils (%) (Auto) 0.3% (0-3) Band Neutrophils % 0% (1-5) Hematology Comments Sodium Level 139mEq/L (134-144) Potassium Level 4.1mEq/L (3.5-5.2) Chloride Level 104mEq/L (97-108) Carbon Dioxide Level 21mmol/L (18-29) Blood Urea Nitrogen 23mg/dL (8-27) Creatinine 0.59mg/dL (0.76-1.27) Estimat Glomerular Filtration Rate 142mL/min (>59) Glucose Level 179mg/dL (60-99) Calcium Level 8.8mg/dL (8.5-10.1) Triglycerides Level 60mg/dL (0-149) Cholesterol Level 114mg/dL (100-199) LDL Cholesterol, Calculated 57.000mg/dL (0-99) VLDL Cholesterol 12.000mg/dL HDL Cholesterol 45mg/dL (>39) Cholesterol/HDL Ratio 2.53 (0.0-4.4) Discharge Medications Discharge Medications Aspirin (Aspirin) 81 Mg Tablet 81 MG PO QPM (Reported) Atorvastatin (Lipitor) 80 Mg Tablet 80 MG PO HS (Reported) Carbidopa/Levodopa 25-100 mg (Carbidopa/Levodopa 25-100 mg) 1 Each Tablet 1 TABLET PO TID (Reported) Gabapentin (Gabapentin) 300 Mg Capsule 600 MG PO QAM (Reported) Gabapentin (Gabapentin) 300 Mg Capsule 900 MG PO HS (Reported) Lisinopril (Lisinopril) 10 Mg Tablet 10 MG PO HS (Reported) Metformin (Metformin) 500 Mg Tablet 500 MG PO BID (Reported) Metoprolol Succinate ER (Toprol XL) 25 Mg Tablet 25 MG PO DAILY (Reported) Rivaroxaban (Xarelto) 20 Mg Tablet 20 MG PO HS (Reported) Ropinirole (Ropinirole) 0.25 Mg Tablet 0.25 MG PO TID (Reported) As needed Metronidazole (Metronidazole Gel) 60 Gm Gel..gram. 1 APPLIC TOPICAL BID PRN PRN rosascea (Reported) Nitroglycerin SL (Nitrostat) 0.4 Mg Tab.subl 0.4 MG SL Q5MIN PRN PRN For Chest Pain (Reported) Followup Plan Follow-up plan Please follow up with your PCP, Dr. Sorto, and your lehr cutter, Dr. Maria , within a week or two after discharge. Discharge Diet: Heart Healthy Discharge Activity: Limited until seen by PCP Time spent Greater than 30 minutes was spent in preparation of discharge with greater than 50% of that time dedicated to patient counseling and coordination of care. . Attending Statement The patient was seen and examined together with Dr. Yepez on 10/03/2016 and I agree with the history, exam and plan as outlined in the note above. . Neetu Yepez DO Oct 03, 2016 19:20 Jd Burrell MD Oct 05, 2016 08:03
== END 2016-10-02 13:00 | disposition home or self-care (01) ==
LOC: SED 02:27 → PCC 05:19
PROVIDERS: ADMIT Hospitalist; ATTEND Hospitalist
DX: R07.9 Chest pain, unspecified (principal); I48.0 Paroxysmal atrial fibrillation; I10 Essential (primary) hypertension; E78.5 Hyperlipidemia, unspecified; G20 Parkinson's disease; E11.9 Type 2 diabetes mellitus without complications; G62.9 Polyneuropathy, unspecified; I25.10 Atherosclerotic heart disease of native coronary artery without angina pectoris; I25.2 Old myocardial infarction; C91.10 Chronic lymphocytic leukemia of B-cell type not having achieved remission; Z95.1 Presence of aortocoronary bypass graft; Z95.5 Presence of coronary angioplasty implant and graft; Z79.82 Long term (current) use of aspirin; Z79.01 Long term (current) use of anticoagulants; Z79.84 Long term (current) use of oral hypoglycemic drugs
CPT/HCPCS: 36415; 71010; 78452; 80048; 80053; 80061; 82550; 82553; 83735; 83880; 84443; 84484; 85007; 85025; 85610; 85730; 93005; 93017; 99285; A9502; J0280; J1644; J1815; J2785; J7030